=== PATIENT | female | born 1965 | race Caucasian/White ===

== ENCOUNTER → 2019-01-12 | Outpatient (CLI) | payer SELFPAY ==
[~2019-01-12] VITALS: Ht 20.3 cm; Wt 104.9 kg
== END | disposition home or self-care (01) ==
LOC: DTH 09:35
PROVIDERS: ATTEND Internal Medicine
DX: E66.09 Other obesity due to excess calories (principal)
CPT/HCPCS: 97802

== ENCOUNTER 2019-01-17 05:30 | Day surgery (SDC) | payer BC, SELFPAY ==
[~2019-01-17] VITALS: Ht 170.2 cm; Wt 106.2 kg
[2019-01-17] VITALS (15 sets, daily range): BP systolic 99–126; BP diastolic 65–77
[~2019-01-17 05:30] MED LIST: ATOR10TA69 PO; DAPA5TAB PO; ERGO500014 PO; FENO160 PO; GLIM4TAB3 PO; ICOS1CAP PO; LEVO100T12 PO; LIRA0.6P SQ; LOSA50TA64 PO; METF-446 PO; OMEP40CA37 PO; ONDA8TAB5 PO; PROG100C6 PO; SCOP1PAT16 TD
[2019-01-17] MEDS ORDERED: SODIUM CHLORIDE 0.9% 1000ML 1,000 ML IV ONE ×2 (05:52→10:14)
[2019-01-17] MEDS ORDERED: ONDANSETRON HCL 4 MG/2 ML VIAL ONE (05:53)
[2019-01-17] MEDS ORDERED: SUCCINYLCHOLINE CHLORIDE 20 MG/ML 10 ML VIAL ONE (07:17)
[2019-01-17] MEDS ORDERED: PROPOFOL 10 MG/ML 20ML VIAL IV ONE (07:17)
[2019-01-17] MEDS ORDERED: FENTANYL CITRATE PF 50 MCG/1 ML 2ML VIAL ONE (07:17)
[2019-01-17] MEDS ORDERED: LIDOCAINE HCL 2% 20ML ONE (07:21)
[2019-01-17] MEDS ORDERED: PHENYLEPHRINE HCL 10 MG/ML 1ML VIAL IV ONE (07:34)
--- NOTE | 2019-01-17 08:00 | NUR ---
REPORT RECEIVED REPORT FROM CAROL NEW. PT AAOX3. ABD ROUND. SOFT TO TOUCH. CALL LIGHT WITHIN REACH.
--- NOTE | 2019-01-17 12:45 | NUR ---
DISCHARGE ORAL AND WRITTEN DISCHARGE INSTRUCTIONS GIVEN TO PT AND PTS . INSTRUCTED ON IMPORTANCE OF REMOVING SCOPALAMINE PATCH IN THREE DAYS. INSTRUCTED ON IMPORTANCE OF TAKING ZOFRAN AND OMEPRAZOLE INSTRUCTED BY DR. RAE. WILL FOLLOW DIET RECOMMENDATIONS GIVEN BY DR. LUND AND INDUSTRIAL PROPERTY APPRAISER.DENIES ANY FEELING OF NAUSEA. INSTRUCTED TO CALL DR. RAE ON IMPORTANCE IF N/V DEVELOPS. VERBALIZED UNDERSTANDING.
== END 2019-01-17 12:25 | disposition home or self-care (01) ==
LOC: DAH 05:30 → ENDO 05:30
PROVIDERS: ATTEND Internal Medicine
DX: K31.89 Other diseases of stomach and duodenum (principal); E66.01 Morbid (severe) obesity due to excess calories; I10 Essential (primary) hypertension; E11.9 Type 2 diabetes mellitus without complications; E78.5 Hyperlipidemia, unspecified; E03.9 Hypothyroidism, unspecified; Z68.36 Body mass index [BMI] 36.0-36.9, adult; Z79.899 Other long term (current) drug therapy; Z79.84 Long term (current) use of oral hypoglycemic drugs; Z98.890 Other specified postprocedural states
CPT/HCPCS: 43235; 43999; 82948 ×2; J0330; J2370; J2405; J2704; J3010; J3490; J7030 ×2

== ENCOUNTER → 2019-02-28 | Outpatient (CLI) | payer SELFPAY ==
--- NOTE | 2019-02-28 16:03 | NUR ---
Balloon Post Op Follow Up Visit 10/26 Pt is Post Op procedure x1mo. Pt reports no complications with procedure with adjustment to Gastric Balloon x3-4 days. Pt is diligent with medications. States has only experienced nausea x2 within last month. Pt reports that within the last month has experienced new adaptation to gastric balloon and implementation of healthier dietary practices. Pt has implemented healthier breakfast foods such as Steel Cut Oats. Pt is not at the point of snacking yet but does frequently eats outside of the home for lunch and dinner. Pt also has removed sugar sweetened beverages from diet. Pt expresses it would be better to cook and prepare foods at home. Pt is also consistent with taking recommended vitamins/supplements. Pt overall encouraged and enthusiastic about wt loss and and energy levels thus far. Pt with two goals to be reviewed at 1 month follow up: 1) Find and implement healthier family-friendly recipes to incorporate 2) Begin exercising at [employer] again RD Follow up in 1 month Addendum: 02/28/19 at [address] Amended: Links added.
== END | disposition home or self-care (01) ==
LOC: DTH 15:12
PROVIDERS: ATTEND Internal Medicine
DX: E66.09 Other obesity due to excess calories (principal)
CPT/HCPCS: 97803

== ENCOUNTER → 2019-05-01 | Outpatient (CLI) | payer SELFPAY ==
[~2019-05-01] MED LIST changes: +PROG100C11 PO; -PROG100C6 PO
--- NOTE | 2019-05-01 11:54 | NUR ---
Balloon Post Op Follow Up Visit 10/25 Pt is post op procedure x2mos. Pt with 6lbs wt loss since last visit (02/28/19). Pt reports not feeling as full within the last month and is able to drink 2-3 glasses of water in one sitting. Pt will consult MD for her concerns. Pt has also had difficulty in reaching goals of increasing exercise as daughter has been out of school for the summer. Pt believes she will be able to workout more now that school has started. Pt was able to exercise 3X's last week via walking for 30 minutes and doing aerobic exercise videos, 30 minutes. Pt also with a lot of travel and therefore had difficulty improving meal planning for healthier family meals at home. Pt has removed all snacking from her diet, however, to improve on meeting her intake goals. 24-hr recall reveals that Pt consumes calorically dense, low fiber diet with fatty foods and drinks sweetened iced tea with meals. Pt stated she doesn't like very many vegetables. Pt does state she likes salads and was encouraged to add salads at her meal times. RD to discuss dietary recommendations in a [id number] process to work on one dietary concern at a time. RD Goal to implement healthier lifestyle habits despite on the go lifestyle. RD provided Pt with [employer] resources handout for families. Healthy virtual cookbook options/list included. Pt to work on 3 goals pending next visit: 1) Implementing healthy on-the-go foods 2) Implementing Exercise regimen 3) Incorporating more salads with meals Pt has RD contact information. RD to follow up with Pt in one month. Addendum: 05/01/19 at [address] Amended: Links added.
== END | disposition home or self-care (01) ==
LOC: DTH 10:08
PROVIDERS: ATTEND Internal Medicine
DX: E66.09 Other obesity due to excess calories (principal)
CPT/HCPCS: 97803

== ENCOUNTER → 2019-05-09 | Outpatient (CLI) | payer BC ==
[~2019-05-09] MED LIST changes: +DIATR MEGLU/DIATRIZOATE SODIUM 30 ML BOTTLE ONE
== END | disposition home or self-care (01) ==
LOC: RAH 07:29
PROVIDERS: ATTEND Internal Medicine
DX: K82.0 Obstruction of gallbladder (principal); E66.09 Other obesity due to excess calories
CPT/HCPCS: 74176; Q9963

== ENCOUNTER 2019-07-30 07:00 | Day surgery (SDC) | payer BC, SELFPAY ==
[~2019-07-30] VITALS: Ht 170.2 cm; Wt 97.1 kg
[~2019-07-30 07:00] MED LIST changes: -DIATR MEGLU/DIATRIZOATE SODIUM 30 ML BOTTLE ONE; -GLIM4TAB3 PO; +GLIM4TAB5 PO; +OMEP40CA13 PO; -OMEP40CA37 PO; +SODIUM CHLORIDE 0.9% 1000ML 1,000 ML IV ONE
[2019-07-30 07:44] VITALS: BP 114/71
[2019-07-30] MEDS ORDERED: METO10TA41 PO (14:16)
== END 2019-07-30 09:00 | disposition home or self-care (01) ==
LOC: ENDO 07:00 → DAH 07:00 → ENDO 09:00
PROVIDERS: ATTEND Internal Medicine
DX: T18.2XXA Foreign body in stomach, initial encounter (principal); E78.5 Hyperlipidemia, unspecified; E11.9 Type 2 diabetes mellitus without complications; E03.9 Hypothyroidism, unspecified; I10 Essential (primary) hypertension; E66.9 Obesity, unspecified; Z98.890 Other specified postprocedural states; Z72.89 Other problems related to lifestyle; Z79.899 Other long term (current) drug therapy; Z79.84 Long term (current) use of oral hypoglycemic drugs; Z83.3 Family history of diabetes mellitus; Z68.33 Body mass index [BMI] 33.0-33.9, adult
CPT/HCPCS: A4215; A4222; A4221; A4223; A4606; A4663; J7030

== ENCOUNTER 2019-07-31 05:30 | Day surgery (SDC) | payer BC, SELFPAY ==
[~2019-07-31] VITALS: Ht 170.2 cm; Wt 97.5 kg
[~2019-07-31 05:30] MED LIST changes: -DAPA5TAB PO; -FENO160 PO; +METO10TA41 PO; -ONDA8TAB5 PO; -SCOP1PAT16 TD; -SODIUM CHLORIDE 0.9% 1000ML 1,000 ML IV ONE
[2019-07-31] MEDS ORDERED: SODIUM CHLORIDE 0.9% 1000ML 1,000 ML IV ONE (06:01)
[2019-07-31 06:11] VITALS: BP 110/68
[2019-07-31] MEDS ORDERED: SUCCINYLCHOLINE 200MG/10ML SYR ONE (07:06)
[2019-07-31] MEDS ORDERED: LIDOCAINE HCL 2% 20ML ONE (07:06)
[2019-07-31] MEDS ORDERED: PROPOFOL 10 MG/ML 20ML VIAL IV ONE (07:06)
[2019-07-31 07:35] VITALS: BP 125/68
[2019-07-31 07:40] VITALS: BP 118/68
[2019-07-31 07:45] VITALS: BP 116/68
[2019-07-31 07:50] VITALS: BP 120/66
--- NOTE | 2019-07-31 07:55 | NUR ---
dc pt dc home via wc, no distress noted. pt denied any pain or discomforts. accompanied by spouse.
== END 2019-07-31 07:55 | disposition home or self-care (01) ==
LOC: DAH 05:30 → ENDO 05:30 → EDSTATUS 13:47
PROVIDERS: ATTEND Internal Medicine
DX: T18.2XXA Foreign body in stomach, initial encounter (principal); E78.5 Hyperlipidemia, unspecified; E11.9 Type 2 diabetes mellitus without complications; I10 Essential (primary) hypertension; E03.9 Hypothyroidism, unspecified; Z79.899 Other long term (current) drug therapy; E66.09 Other obesity due to excess calories; Y83.8 Other surgical procedures as the cause of abnormal reaction of the patient, or of later complication, without mention of misadventure at the time of the procedure; Z68.33 Body mass index [BMI] 33.0-33.9, adult
CPT/HCPCS: 43247; 82948 ×2; A4215 ×3; A4221; A4222; A4223; A4606; A4615; A4663; J0330; J2704; J3490; J7030